=== PATIENT | female | born 1925 | race Caucasian/White ===

== ENCOUNTER 2016-12-21 15:24 | Emergency (ER) | payer OTHER ==
[~2016-12-21 15:24] MED LIST: CENTRUM SILVER PO; DIFLUCAN PO; FLAGYL PO; FLEXERIL; HYDROXYZINE HCL50 MG PO; LEVAQUIN PO; LOMOTIL TABLET1 TAB PO; LORTAB 5-325 M1 EACH PO; MEDROL DOSEPAK4 MG PO; METRONIDAZOLE PO; NAPROXEN; NILSTAT PO; SENNA8.6 M1; SYNTHROID PO; WELCHOL625 MG PO; ZANTAC150 MG PO
== END 2016-12-21 15:25 | disposition home or self-care (01) ==
LOC: SED 15:24
DX: L03.115 Cellulitis of right lower limb (principal)
CPT/HCPCS: 36415; 96374; 96375; 99284

== ENCOUNTER 2016-12-24 18:01 | Observation (INO) | payer OTHER, SELFPAY ==
--- NOTE | ~2016-12-24 | DS ---
Unit #: [id number] #: [id number] Patient: ELIZABETH LUCIANO [id number] [address] [place], [place] [address] [id number] I MR#: [id number] NAME: ELIZABETH LUCIANO. ROOM: 217 Age: 89 Sex: F Admission Date: 12/24/2016 : 1925 Discharge Date: 12/26/2016 Attending Physician: Lorraine Krishnamurthy M.D. Primary Care Physician: Itz Reece M.D. DISCHARGE SUMMARY DISCHARGE DIAGNOSES 1. Acute kidney injury, likely acute tubular necrosis secondary to Bactrim usage. Has been on intravenous fluids. 2. Hyperkalemia, fluctuating. Will reassess this "prior to admission." 3. Reproducible chest pain, likely musculoskeletal in nature. 4. Resolved leukocytosis. 5. Hypothyroidism. 6. History of gout. 7. Resolved lower extremity cellulitis. PROCEDURES None. CONSULTANTS None. DIAGNOSTIC STUDIES IMAGING: Chest x-ray on 12/24/16. Impression - Lungs are well expanded without definite acute pulmonary or pleural findings. The pulmonary vascularity appears mildly increased; however, there is more contrast on this film, and I believe this is technical. CT abdomen and pelvis on 12/24/16 with impression of cholecystectomy changes. No fluid in the gallbladder fossa. The common bile duct is prominent at 13 mm similar to 11/03/2010. No definite stone is seen. The pancreas and pancreatic duct are normal. Diverticulosis of the descending colon and sigmoid colon without diverticulitis. Moderate-sized paraesophageal hiatal hernia, increased from 11/03/2010. LABS: On the day of discharge the patient's labs were glucose of 93, BUN 11, creatinine 1.5, sodium 141, potassium 5.2, chloride 109, CO2 26, calcium 9.2, total protein 6, albumin 3.4, total bilirubin 0.5, AST 21, ALT 14, alkaline phosphatase 82. CBC with WBC of 8.6, RBC 4.67, hemoglobin 12.1, hematocrit 38.7, MCV 82.9, MCH 26, MCHC 31.4, RDW 13.3, platelets 295, MPV 8.8. HOSPITAL COURSE The patient is a pleasant 89-year-old female with past medical history of hypothyroidism, gastroesophageal reflux disease, hiatal hernia, gout, chronic stage 3 kidney disease with baseline creatinine of 1.1, history of skin cancer, history of aortic murmur. She presented to the emergency department due to chest pain. Workup in the emergency department was negative for chest pain. She was asked to be seen by the admitting physician for possible chest pain workup. On exam, she had substernal, Unit #: [id number] #: [id number] Patient: ELIZABETH LUCIANO reproducible chest pain that had resolved. Her EKG was unremarkable. Blood workup had showed a creatinine elevated at 1.6 from her baseline of 1.1 about a year ago. She was also hyperkalemic. The patient was treated with Bactrim, and she took 2 doses of this last week when she was seen and diagnosed with lower extremity cellulitis. She was admitted and hospitalized for acute kidney injury, possibly ATN, with hyperkalemia. The patient did receive IV fluids. The patient tells me that she no longer had any chest pain, no longer had any pain in her lower extremity consistent with cellulitis. On exam, her lower extremity has no appearance of erythema or warmth. At this time the patient's creatinine is stable. Her postvoid residual volume was 0. CT abdomen and pelvis shows no signs of obstruction. I am repeating a potassium level. If this is less than 5, the patient may be discharged home to follow up with her physician, Dr. Christ Eid, on January 03, as was scheduled prior to hospitalization. DISCHARGE CONDITION Stable. DISCHARGE ACTIVITY No restriction. Patient may ambulate as tolerated every day as was prior to hospitalization. DISCHARGE DIET Heart healthy diet. DISCHARGE MEDICINES 1. Zantac 150 mg orally daily. 2. Multivitamin 1 tablet orally daily. 3. Synthroid 125 mcg orally daily. Dictated by... Danuta Rhodes PA-C for Moni Guzman TD: 12/26/2016 13:29 JOB #: [id number] DISCHARGE SUMMARY Page 1 of 1 X X DISCHARGE SUMMARY
--- NOTE | ~2016-12-24 | EKG ---
PATIENT: ELIZABETH LUCIANO UNIT #: [id number] Ventricular Rate: 84 BPM Atrial Rate: 84 BPM P-R Interval: 154 ms QRS Duration: 86 ms Q-T Interval: 386 ms QTC Calculation(Bezet): 456 ms P Granby: 68 degrees Calculated R Granby: 46 degrees Calculated T Granby: 67 degrees Diagnosis Line: Normal sinus rhythm Diagnosis Line: Normal ECG Diagnosis Line: When compared with ECG of 26-APR-2016 06:16, Diagnosis Line: No significant change was found Diagnosis Line: Confirmed by RISHI CUELLAR MD ([id number]) on 12/25/2016 Diagnosis Line: 10:41:44 PM INTERPRETING MD: ALISA SPAULDING
--- NOTE | ~2016-12-24 | HP ---
Unit #: [id number] #: [id number] Patient: ELIZABETH GREENWOOD [id number] [address] [place], [place] [address] [id number] I MR#: [id number] NAME: ELIZABETH GREENWOOD. ROOM: 217 Age: 89 Sex: F Admission Date: 12/24/2016 : 1925 Attending Physician: Carlyn De La O M.D. Primary Care Physician: Itz Reece M.D. HISTORY AND PHYSICAL CHIEF COMPLAINT Chest pain. HISTORY OF PRESENT ILLNESS Ms. Greenwood is a very nice 89-year-old female who presents to the emergency department with complaints of chest pain. The patient was seen in [facility] ER on December 21, 2016, with swelling and redness of her right foot. She was diagnosed with cellulitis and was prescribed Bactrim. The patient states after taking three days of antibiotics, the swelling and redness of her right foot stopped. She has not taken another dose of Bactrim since yesterday, December 23. However, beginning yesterday on the , she developed some abdominal pain that was located in the epigastric region and radiated up substernally described as a burning. It was associated with nausea but no episodes of emesis. There was no radiation of the pain. She denies any palpitations, orthopnea or PND. She became concerned and subsequently presented to the emergency department. Upon presentation, vital signs relatively stable though blood pressure is mildly elevated at 165/71. The patient was given 20 mg of Pepcid IV, some Zofran, some normal saline and her abdominal pain resolved. EKG is unremarkable. I was asked to admit the patient for chest pain. However, patient states that her pain really just feels more like heartburn and she has a known enlarged hiatal hernia. Upon review of blood work, however, her creatinine is elevated at 1.6, up from a baseline of 1.1. She also has mild hyperkalemia. Thus, I am admitting her for acute kidney injury, likely Bactrim-induced. PAST MEDICAL HISTORY 1. Recent right foot cellulitis, now resolved after Bactrim therapy. 2. Obstructive jaundice, status post ERCP and laparoscopic cholecystectomy in April 2016. 3. Hypothyroidism. 4. Gastroesophageal reflux disease. 5. Hiatal hernia. 6. Gout. 7. Chronic kidney disease stage 3, with baseline creatinine approximately 1.1. 8. History of skin cancer. 9. History of aortic murmur. PAST SURGICAL HISTORY 1. Eye history. 2. ERCP. 3. Laparoscopic cholecystectomy. Unit #: [id number] #: [id number] Patient: ELIZABETH GREENWOOD ALLERGIES Include penicillin and latex. MEDICATIONS Home medications include: 1. Centrum Silver, one tablet daily. 2. Levothyroxine 125 mcg p.o. daily. 3. Zantac 150 mg p.o. daily. FAMILY HISTORY Includes a son with renal disease who is maintained on hemodialysis. Son is also diabetic. SOCIAL HISTORY The patient is living in a care home home but is independent with all ADLs. She quit smoking approximately ten years ago but I believe does have an extensive smoking history prior to that. She does intermittently drink alcohol and denies any illicit drug use. REVIEW OF SYSTEMS Please note - patient's swelling of the right foot and cellulitis occurred after drinking alcohol a few days ago. Again, she is chest pain free now. She denies any fever. She denies any sore throat. She denies any shortness of breath. She does have chronic constipation but no diarrhea, no melena, no hematochezia, no dysuria or hematuria. She drinks ten glasses of water daily, has not had any falls. Does not have any new tingling, numbness, weakness of extremities. Otherwise, ten point review of systems is reviewed and is negative. PHYSICAL EXAMINATION VITAL SIGNS: Temperature 98.2, blood pressure is currently 126/83, pulse rate 85, respiratory rate 19. Oxygen saturation is 96% on room air. GENERAL: The patient is awake, alert. She is oriented x3 and very pleasant. She is talkative. HEENT: Pupils equally round, reactive to light bilaterally. Anicteric sclerae. No conjunctival pallor. Oropharynx with moist mucous membranes. No erythema or exudate. NECK: Supple. No lymphadenopathy, no thyromegaly, no JVD. HEART: Regular rate and rhythm. She does have a 3/6 systolic murmur in the aortic region. LUNGS: Otherwise clear without wheezes, rhonchi or crackles. ABDOMEN: Soft, nondistended. Positive bowel sounds. No appreciable hepatosplenomegaly. EXTREMITIES: No cyanosis, clubbing, or edema. Pedal pulses 2/4. SKIN: Warm, moist without rash. There is no evidence of any gout and/or cellulitis of the right foot currently. NEUROLOGIC: Cranial nerves II-XII intact. Sensation, strength and deep tendon reflexes are all normal. SKIN: Multiple solar lentigos throughout. No other obvious significant lesions. PSYCHIATRIC: Appropriate affect. Alert and oriented x3. DIAGNOSTIC STUDIES LABORATORY: Blood work done in the emergency department reveals negative troponin x2. CBC reveals a mildly elevated white blood cell count of 11.0. Hemoglobin 12.2 with MCV of 81. Platelet count of 267,000. Differential reveals 87% Unit #: [id number] #: [id number] Patient: ELIZABETH GREENWOOD. BMP reveals a sodium of 130, potassium 5.3, chloride 97, bicarb 23, BUN 18, creatinine 1.6, glucose of 115. GFR is decreased at 28. Alkaline phosphatase is mildly elevated at 96. Amylase and lipase are normal and albumin is also normal. UA is negative. EKG done in the emergency department reveals normal sinus rhythm. There are no acute ST or T wave abnormalities. ASSESSMENT 1. Acute kidney injury, likely secondary to acute tubular necrosis, plus or minus interstitial nephritis secondary to Bactrim. 2. Mild hyperkalemia. 3. Atypical chest pain secondary to reflux. 4. Leukocytosis, questionable reactive. 5. Hypothyroidism. 6. Gout. 7. Recent cellulitis of right foot, now resolved. PLAN 1. Will place patient in observation overnight. 2. Place her on IV fluids at normal saline at 75 mL/hour and will check urine eosinophils and check a postvoid residual as well just to rule out other etiologies for acute renal failure. I am also going to discontinue Bactrim given it is likely the source of her acute kidney injury and her cellulitis is also resolved. 3. Will recheck potassium level in the morning. I anticipate that this will decrease with IV fluids. 4. Will recheck a leukocytosis in the morning. 5. The patient's chest pain is extremely atypical and I don't feel she needs any cardiac workup at this time. I did discuss this with her briefly and she states at her age she likely wouldn't have anything done anyway and, thus, I am going to hold off on further cardiac workup. 6. Will continue home medications for hypothyroidism. 7. Will continue medications for GERD. 8. I am going to hold multivitamins for now. 9. DVT prophylaxis with SCDs. Dictated by Carlyn De La O M.D. SANTA/ryder TD: 12/25/2016 04:59 JOB #: [id number] Unit #: [id number] #: [id number] Patient: ELIZABETH GREENWOOD Brionna HISTORY AND PHYSICAL Page 1 of 1 X Carlyn De La O MD X HISTORY AND PHYSICAL
--- NOTE | ~2016-12-24 | CT4 ---
[facility] A Service of [facility] RADIOLOGY TEXT RESULTS PATIENT: ELIZABETH LUCIANO LOCATION: [facility] 217- : [birth year] UNIT #: [id number] AGE: [address]: Lorraine Krishnamurthy MD SEX: F ORDER DR: [id number] [facility] [address] [place], [place] [address] [id number] I MR#: [id number] Acc #: [id number] NAME: ELIZABETH LUCIANO. : 1925 SEX: F STUDY DATE/TIME: 12/24/2016 19:11 UNIT: [facility] ROOM: [facility] STUDY DESCRIPTION: CT Abd and Pelv Wo Cont Attending Physician: Carlyn De La O M.D. Ordering Physician: Marito Yeager D.O. Primary Care Physician: Itz Reece M.D. MEDICAL IMAGING REPORT This report is preliminary unless electronic signature is present EXAM CT abdomen and pelvis without contrast, 12/24/2016 1911 hours. CLINICAL HISTORY 89-year-old woman complaining of epigastric abdominal pain for 2 days. Vomiting twice since last night. History of cholecystectomy [address] abdomen and pelvis 11/03/2010 TECHNIQUE Helical noncontrasted images were obtained from the lung bases through the pubic symphysis without oral or intravenous contrast. Sagittal and coronal reconstructions were performed. Total exam DLP 613 mGy-cm. This CT exam was performed with one or more of the following radiation dose reduction techniques: automatic exposure control, adjustment of mA and/or kV according to patient size, and iterative reconstruction. FINDINGS Images through the lung bases demonstrate clear lungs. There is no pleural effusion. There is a moderate-sized paraesophageal hiatal hernia, increased in size from CT 11/03/2010. Noncontrasted images through the abdomen demonstrate a normal appearance to the liver and spleen. The pancreas is mildly atrophic. There is no pancreatic ductal dilatation. There are clips consistent with prior cholecystectomy. The common bile duct is mildly prominent measuring 13 mm on image 34 that previously measured 13 mm on 11/03/2010 and this is felt likely chronic. No definite stones are seen. The adrenal glands are normal. The kidneys demonstrate no mass, stone or STS. [facility] A Service of [facility] RADIOLOGY TEXT RESULTS PATIENT: ELIZABETH LUCIANO LOCATION: [facility] 217-01 : [birth year] UNIT #: [id number] AGE: [address]: Lorraine Krishnamurthy MD SEX: F ORDER DR: obstruction. There is atherosclerotic change in the aorta without aneurysm. The stomach is contracted and unopacified. It appears normal other than the increasing hiatal hernia. There is no small bowel distension or small bowel wall thickening. The terminal ileum and appendix are normal. There is moderate stool in the colon with no distension. There are scattered diverticula in the descending colon and sigmoid colon. There is no wall thickening. CT pelvis demonstrates multiple phleboliths. The uterus and adnexal regions are normal. Bones demonstrate degenerative change in the lower thoracic spine similar to prior CT. There is vertebral body height loss at the anterior-superior endplate of L2 which was present on 11/03/2010, perhaps slight worsening. There is no new lumbar fracture. IMPRESSION 1. Cholecystectomy change with no fluid in the gallbladder fossa. The common bile duct is prominent at 13 mm similar to 11/03/2010. No definite stone is seen. The pancreas and pancreatic duct are normal. 2. Diverticulosis of the descending colon and sigmoid colon without diverticulitis. 3. Moderate-sized paraesophageal hiatal hernia, increased from 11/03/2010. Dictated by... Komal Winter M.D. THIS IS AN ELECTRONICALLY VERIFIED REPORT Komal Winter M.D. at 12/25/2016 9:29 AM LISA/jazmine TD: 12/24/2016 23:33 JOB #: [id number] MEDICAL IMAGING REPORT Page 1 of 1 COPY
--- NOTE | ~2016-12-24 | CR72 ---
[facility] A Service of [facility] RADIOLOGY TEXT RESULTS PATIENT: ELIZABETH LUCIANO LOCATION: [facility] 217 : [birth year] UNIT #: [id number] AGE: [address]: Lorraine Krishnamurthy MD SEX: F ORDER DR: [id number] [facility] [address] [place], [place] [address] [id number] I MR#: [id number] Acc #: [id number] NAME: ELIZABETH LUCIANO. : 1925 SEX: F STUDY DATE/TIME: 12/24/2016 19:11 UNIT: [facility] ROOM: [facility] STUDY DESCRIPTION: CR Chest Single View Portable Attending Physician: Carlyn De La O M.D. Ordering Physician: Marito Yeager D.O. Primary Care Physician: Itz Reece M.D. MEDICAL IMAGING REPORT This report is preliminary unless electronic signature is present EXAM Chest portable 12/24/2016 1911 hours HISTORY 89-year-old woman with complaint of midsternal chest pain for 3 days. Mild congestion. Patient states, "feels like heartburn." COMPARISON 04/24/2016 FINDINGS Portable upright chest demonstrates heart size within normal limits. There is a mildly tortuous atherosclerotic aorta without change. The lungs are well expanded. There is stable horizontal linear scar in the lingula. There is no definite edema. Vascularity appears slightly more prominent but I believe this is due to more contrast on this film and is technical. IMPRESSION Lungs are well expanded without definite acute pulmonary or pleural findings. The pulmonary vascularity appears mildly increased, however, there is more contrast on this film and I believe this is technical. Dictated by... Komal Winter M.D. THIS IS AN ELECTRONICALLY VERIFIED REPORT Komal Winter M.D. at 12/25/2016 9:29 AM LISA/vishal TD: 12/24/2016 23:11 [facility] A Service [facility] RADIOLOGY TEXT RESULTS PATIENT: ELIZABETH LUCIANO [address] [id number] : [birth year] UNIT #: [id number] AGE: [address]: Lorraine Krishnamurthy MD SEX: F ORDER DR: JOB #: [id number] MEDICAL IMAGING REPORT Page 1 of 1 COPY
[2016-12-24 18:16] LABS: POC - CKMB 5.5 ng/mL (0.0-7.9); POC - TROPONIN <0.05 ng/mL (<=0.05)
[2016-12-24 18:26] LABS: BASOPHIL# 0.1 X10e3 (0-0.3); BASOPHIL% 0.7 % (0-2.5); EOSINOPHIL% 0.1 % (0.0-7.0); HEMATOCRIT 38.3 % (35.0-45.0); HEMOGLOBIN 12.2 gm/dL (12.0-16.0); LYMPHOCYTE# 0.8 X10e3 (1.0-3.5); LYMPHOCYTE% 7.6 % (17.0-45.0); MEAN CELL VOLUME 81.5 FL (83-96); MEAN PLATELET VOLUME 9.8 FL (6.5-11.5); MONOCYTE# 0.5 X10e3 (0-1.0); MONOCYTE% 4.5 % (3.0-12.0); NEUTROPHIL# 9.6 X10e3 (1.5-7.1); NEUTROPHIL% 87.1 % (40-75); PLATELET COUNT 267 X10e3 (140-420); RED CELL DISTRIBUTION WIDTH 13.1 % (11.0-15.5)
[2016-12-24 18:30] LABS: DIFF IND NO
[2016-12-24 18:50] LABS: ALBUMIN SERUM 3.9 g/dL (3.5-5.0); BILIRUBIN, DIRECT 0.1 mg/dL (0.0-0.2); BILIRUBIN,INDIRECT 0.7 mg/dL (0.0-0.9); BILIRUBIN,TOTAL 0.8 mg/dL (0.2-2.0); BUN/CREATININE RATIO 11.25; CALCIUM SERUM 9.1 mg/dL (8.4-10.2); CREATININE SERUM 1.6 mg/dL (0.6-1.4); GLOM FILT RATE Estimated 28.3 mL/min (>60); POTASSIUM 5.3 mmol/L (3.5-5.1); PROTEIN TOTAL SERUM 7.3 g/dL (6.0-8.3)
[2016-12-24 20:06] LABS: POC - CKMB 3.6 ng/mL (0.0-7.9); POC - TROPONIN <0.05 ng/mL (<=0.05)
[2016-12-24 20:25] LABS: URINE SOURCE CLEAN CATCH
[2016-12-24 20:31] LABS: URINE APPEARANCE CLEAR; URINE BILIRUBIN NEG (NEG); URINE BLOOD NEG (NEG); URINE COLOR YELLOW; URINE GLUCOSE NEG (NEG); URINE KETONE 1+ (NEG); URINE LEUKOCYTE ESTERASE NEG (NEG); URINE NITRATE NEG (NEG); URINE PROTEIN NEG (NEG); URINE SPECIFIC GRAVITY 1.016 (1.003-1.035)
[2016-12-24 20:38] LABS: CULTURE INDICATED? NO
[2016-12-25 06:57] LABS: BASOPHIL% 0.4 % (0-2.5); DIFF IND NO; EOSINOPHIL# 0.2 X10e3 (0-0.7); EOSINOPHIL% 1.9 % (0.0-7.0); HEMATOCRIT 35.9 % (35.0-45.0); HEMOGLOBIN 11.4 gm/dL (12.0-16.0); LYMPHOCYTE% 21.7 % (17.0-45.0); MEAN CELL VOLUME 83.3 FL (83-96); MEAN CORPUSCULAR HEMOGLOBIN 26.3 PG (28-34); MEAN CORPUSCULAR HGB CONC 31.6 g/dL (30-36); MEAN PLATELET VOLUME 9.3 FL (6.5-11.5); MONOCYTE# 0.9 X10e3 (0-1.0); MONOCYTE% 9.7 % (3.0-12.0); NEUTROPHIL# 6.2 X10e3 (1.5-7.1); NEUTROPHIL% 66.3 % (40-75); PLATELET COUNT 262 X10e3 (140-420); RED BLOOD COUNT 4.31 X10e (3.90-5.30); RED CELL DISTRIBUTION WIDTH 13.3 % (11.0-15.5); WHITE BLOOD COUNT 9.4 X10e3 (4.0-10.5)
[2016-12-25 07:50] LABS: CALCIUM SERUM 8.9 mg/dL (8.4-10.2); CREATININE SERUM 1.6 mg/dL (0.6-1.4); GLOM FILT RATE Estimated 28.3 mL/min (>60)
[2016-12-25 07:55] LABS: POTASSIUM 5.5 mmol/L (3.5-5.1)
[2016-12-25 15:03] LABS: CALCIUM SERUM 8.5 mg/dL (8.4-10.2); CREATININE SERUM 1.7 mg/dL (0.6-1.4); GLOM FILT RATE Estimated 26.3 mL/min (>60); POTASSIUM 4.9 mmol/L (3.5-5.1)
[2016-12-26 08:56] LABS: HEMATOCRIT 38.7 % (35.0-45.0); HEMOGLOBIN 12.1 gm/dL (12.0-16.0); MEAN CELL VOLUME 82.9 FL (83-96); MEAN CORPUSCULAR HGB CONC 31.4 g/dL (30-36); MEAN PLATELET VOLUME 8.8 FL (6.5-11.5); RED BLOOD COUNT 4.67 X10e (3.90-5.30); RED CELL DISTRIBUTION WIDTH 13.3 % (11.0-15.5); WHITE BLOOD COUNT 8.6 X10e3 (4.0-10.5)
[2016-12-26 09:22] LABS: ALBUMIN SERUM 3.4 g/dL (3.5-5.0); BILIRUBIN,TOTAL 0.5 mg/dL (0.2-2.0); CALCIUM SERUM 9.2 mg/dL (8.4-10.2); CREATININE SERUM 1.5 mg/dL (0.6-1.4); GLOM FILT RATE Estimated 30.6 mL/min (>60); POTASSIUM 5.2 mmol/L (3.5-5.1)
== END 2016-12-26 13:58 | disposition home or self-care (01) ==
LOC: CED 18:01 → CEDOF 21:10 → C2A 22:10
PROVIDERS: Emergency Medicine; Family Medicine; Internal Medicine; Physician Assistant Medical
DX: N17.9 Acute kidney failure, unspecified (principal); N18.3 Chronic kidney disease, stage 3 (moderate); E87.5 Hyperkalemia; R07.89 Other chest pain; K21.9 Gastro-esophageal reflux disease without esophagitis; E03.9 Hypothyroidism, unspecified; M10.9 Gout, unspecified; D72.829 Elevated white blood cell count, unspecified; K57.30 Diverticulosis of large intestine without perforation or abscess without bleeding; K44.9 Diaphragmatic hernia without obstruction or gangrene; Z90.49 Acquired absence of other specified parts of digestive tract
CPT/HCPCS: 36415; 71010; 74176; 80048; 80053; 80076; 81003; 82150; 82553; 83690; 84132; 84484; 85025; 85027; 89190; 93005; 96374; 96375; 99285; G0378; J2405